=== PATIENT | female | born 1945 | race Caucasian/White ===

== ENCOUNTER 2018-02-04 10:52 | Emergency (ER) | payer MEDICARE, BC ==
[2018-02-04] MEDS ORDERED: Aspirin 81 MG Tab.Chew PO ONE (11:06)
--- NOTE | 2018-02-04 11:06 | EDM.PDOC ---
ED HPI GENERAL MEDICAL PROBLEM - General Chief Complaint: Cardiovascular Problem Stated Complaint: SOB/ DIZZY/ CHEST PAINS/ NECK PAIN Time Seen by Provider: 02/04/18 11:03 Source of Information: Reports: Patient, Family, RN Notes Reviewed History Limitations: Reports: Physical Impairment - History of Present Illness INITIAL COMMENTS - FREE TEXT/NARRATIVE: 73-year-old female presents emergency department day complaint of chest pain, she has a known history of dementia difficult to obtain history from her. I was able to talk to her daughter states that she had some shrubs cut down outside her house 3 days ago which has upset her, today when she was outside she was upset began became very short of breath describes chest pain and hyperventilating no nausea no vomiting no diaphoresis no significant heart history - Related Data Allergies Allergy/AdvReac Type Severity Reaction Status Date / Time gabapentin AdvReac Hallucinati Verified 02/04/18 11:05 ons Home Meds: Home Meds Citalopram [Citalopram HBr] 40 mg PO DAILY 02/04/18 [History] Donepezil HCl 10 mg PO DAILY 02/04/18 [History] Hydroxyurea [Hydrea] 500 mg PO BID 02/04/18 [History] Memantine HCl 10 mg PO DAILY 02/04/18 [History] Propranolol [Inderal LA 24 Hr] 80 mg PO TID 02/04/18 [History] 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: Neurological History: Reports: Alzheimers Disease, Other (See Below) Other Neuro History: chronic essential tremors Psychiatric History: Reports: Dementia Oncologic (Cancer) History: Reports: Other (See Below) Other Oncologic History: Blood cancer - Past Surgical History Head Surgeries/Procedures: Reports: None Social & Family History - Tobacco Use Smoking Status *Q: Current Every Day Smoker ED ROS GENERAL - Review of Systems Review Of Systems: Unable To Obtain ED EXAM, GENERAL - Physical Exam Exam: See Below Exam Limited By: Physical Impairment General Appearance: Alert, Mild Distress Respiratory/Chest: No Respiratory Distress, Lungs Clear, Normal Breath Sounds, No Accessory Muscle Use Cardiovascular: Regular Rate, Rhythm, No Murmur GI/Abdominal: Soft, Non-Tender Course - Vital Signs Last Recorded V/S: Last Vital Signs Temp 98.5 F 02/04/18 11:01 Pulse 62 02/04/18 11:01 Resp 14 02/04/18 11:01 BP 115/85 02/04/18 11:01 Pulse Ox 99 02/04/18 11:01 - Orders/Labs/Meds Orders: Active Orders 24 hr Category Date Time Status Cardiac Monitoring [RC] .As Directed Care 02/04/18 11:06 Active EKG Documentation Completion [RC] ASDIRECTED Care 02/04/18 11:06 Active Chest 1V Frontal [CR] Stat Exams 02/04/18 11:06 Taken EKG 12 Lead [EK] Stat Ther 02/04/18 11:06 Ordered Labs: Laboratory Tests 02/04/18 02/04/18 Range/Units 11:19 11:19 WBC 4.9 (4.5-11.0) K/uL RBC 2.68 L (3.30-5.50) M/uL Hgb 11.5 L (12.0-15.0) g/dL Hct 33.4 L (36.0-48.0) % MCV 125 H (80-98) fL MCH 43 H (27-31) pg MCHC 34 (32-36) % Plt Count 271 (150-400) K/uL Neut % (Auto) 57 (36-66) % Lymph % (Auto) 32 (24-44) % [place] % (Auto) 9 H (2-6) % Eos % (Auto) 1 L (2-4) % Baso % (Auto) 1 (0-1) % Sodium 139 L (140-148) mmol/L Potassium 4.4 (3.6-5.2) mmol/L Chloride 104 (100-108) mmol/L Carbon Dioxide 28 (21-32) mmol/L Anion Gap 11.4 (5.0-14.0) mmol/L BUN 18 D (7-18) mg/dL Creatinine 1.0 D (0.6-1.0) mg/dL Est Cr Clr Drug Dosing 43.74 mL/min Estimated GFR (MDRD) 54 L (>60) Glucose 99 (74-106) mg/dL Calcium 8.7 (8.5-10.1) mg/dL Total Bilirubin 1.6 H D (0.2-1.0) mg/dL AST 21 (15-37) U/L ALT 25 (12-78) U/L Alkaline Phosphatase 71 (46-116) U/L CK-MB (CK-2) 1.2 (0-3.6) mg/mL Troponin I < 0.017 (0.000-0.056) ng/mL Total Protein 6.8 (6.4-8.2) g/dL Albumin 3.5 (3.4-5.0) g/dL Globulin 3.3 (2.3-3.5) g/dL Albumin/Globulin Ratio 1.1 L (1.2-2.2) Meds: Medications Discontinued Medications Generic Name Dose Route Start Last Admin Trade Name Dorothy PRN Reason Stop Dose Admin Aspirin 324 mg 02/04/18 11:06 02/04/18 11:17 Aspirin PO 02/04/18 11:07 324 mg ONETIME ONE Administration Lorazepam 1 mg 02/04/18 11:07 02/04/18 11:17 Ativan PO 02/04/18 11:08 1 mg ONETIME ONE Administration Departure - Departure Time of Disposition: 12:16 Disposition: Home, Self-Care 01 Condition: Fair Clinical Impression: Panic attack Referrals: Garcia Hooks MD [Primary Care Provider] - Forms: ED Department Discharge Additional Instructions: Use Ativan as needed for symptomatic relief, Please followup with your primary care provider in 3-5 days if not better, please call return to the emergency department with worsening of symptoms. - My Orders Last 24 Hours: My Active Orders 02/04/18 11:06 Cardiac Monitoring [RC] .As Directed EKG Documentation Completion [RC] ASDIRECTED Chest 1V Frontal [CR] Stat EKG 12 Lead [EK] Stat - Assessment/Plan Last 24 Hours: My Active Orders 02/04/18 11:06 Cardiac Monitoring [RC] .As Directed EKG Documentation Completion [RC] ASDIRECTED Chest 1V Frontal [CR] Stat EKG 12 Lead [EK] Stat Plan: Assessment Acuity = acute Site and laterality = panic attack complicated patient with history of Alzheimer 's type dementia Etiology = probably related to recent change in environment with trees been cut down Manifestations = none Location of injury = Home Lab values = hemoglobin low 11.5 consistent with macro chromic anemia total bilirubin elevated at 1.6 consistent hyperbilirubinemia remainder lab work was negative, troponin was negative EKG demonstrates a sinus rhythm however there are some ST depressions that are random no consecutive leads appreciated chest x -ray I did review films myself I cannot appreciate any acute process, the official read from radiology is pending Plan I did review lab work EKG results with her daughter wouldn't try Ativan which did calm her down 1 mg by mouth 3 times a day when necessary total #10, have her follow-up with primary care in 3-5 days if no improvement This note was dictated using ITC voice recognition software please call with any questions on syntax or grammar.
[2018-02-04] MEDS ORDERED: LORazepam 1 MG Tab PO ONE (11:07)
--- NOTE | 2018-02-04 12:37 | CR ---
CHEST: Portable CLINICAL HISTORY:Chest pain COMPARISON:2014 FINDINGS: The heart size, pulmonary vascular and hilar structures are normal. No infiltrate effusion or pneumothorax is seen. There is a sclerotic focus in the proximal right humerus of uncertain chrono logy. IMPRESSION: No acute cardiopulmonary process
[2018-02-04 12:54] VITALS: BP 132/63
== END 2018-02-04 12:35 | disposition home or self-care (01) ==
LOC: JP.ED 10:52
DX: F41.0 Panic disorder [episodic paroxysmal anxiety] (principal); G30.9 Alzheimer's disease, unspecified; F02.80 Dementia in other diseases classified elsewhere, unspecified severity, without behavioral disturbance, psychotic disturbance, mood disturbance, and anxiety; Z88.8 Allergy status to other drugs, medicaments and biological substances; Z79.899 Other long term (current) drug therapy; F17.200 Nicotine dependence, unspecified, uncomplicated
CPT/HCPCS: 36415; 71045; 80053; 82553; 84484; 85025; 93005; 99284; A9270

== ENCOUNTER 2020-03-29 22:39 | Emergency (ER) | payer MEDICARE, MEDICAID ==
[2020-03-29] MEDS ORDERED: Rocuronium 50 MG/5 ML Vial ONE (22:47)
[2020-03-29] MEDS ORDERED: propofoL 100 ML ONE (23:08)
[2020-03-29] MEDS ORDERED: Etomidate 2 MG/ML 10 ML SDV IVPUSH ONE (23:09)
[2020-03-29] MEDS ORDERED: propofoL 100 ML IV SCH (23:15)
[2020-03-29] MEDS ORDERED: Sodium Chloride 0.9% 1,000 ML IV ONE (23:15)
[2020-03-29] MEDS ORDERED: cefTRIAXone 1 GM in Sodium Chloride 0.9% 50 ML IV ONE (23:18)
[2020-03-29] MEDS ORDERED: cefTRIAXone 1 GM AdvVial IV ONE (23:20)
[2020-03-29] MEDS ORDERED: Sodium Chloride 0.9% 100 ML ONE (23:20)
--- NOTE | 2020-03-29 23:37 | EDM.PDOC ---
ED HPI GENERAL MEDICAL PROBLEM - General Chief Complaint: Respiratory Problem Stated Complaint: COVID POSITIVE VIA [facility] Time Seen by Provider: 03/29/20 23:08 - History of Present Illness INITIAL COMMENTS - FREE TEXT/NARRATIVE: Yuliet is a 75-year-old female presenting from [facility] for respiratory difficulty. EMS was called after the patient exhibited what appeared to be seizure-like activity and found her to be in respiratory distress with tachycardia, hypotension, and hypoxia. Upon arrival to the ED the patient's blood pressure was 60/34 with a heart rate of 165 bpm and an SPO2 of 70% despite being on close fitting facemask and nasal cannula. The patient was found to have a temperature of 102.7 F. She could not answer questions, was not following commands, but did withdraw to pain. Per report of EMS, the patient was diagnosed 3 days ago with COVID-19. The patient has not been cooperative through the transport. She is confused and grabbing at things. She arrived with gurgling respirations and a large amount of thick secretions in the pharynx. - Related Data Allergies Allergy/AdvReac Type Severity Reaction Status Date / Time gabapentin AdvReac Hallucinati Verified 02/04/18 11:05 ons sulfa drugs Allergy Other Uncoded 02/18/19 12:35 Home Meds: Home Meds Citalopram [Citalopram HBr] 40 mg PO DAILY 02/04/18 [History] Donepezil HCl 10 mg PO DAILY 02/04/18 [History] Hydroxyurea [Hydrea] 500 mg PO BID 02/04/18 [History] Memantine HCl 10 mg PO BID 02/04/18 [History] Propranolol [Inderal LA 24 Hr] 80 mg PO TID 02/04/18 [History] Aspirin [Halfprin] 81 mg PO DAILY 02/18/19 [History] Glycopyrrolate [Robinul] 1 mg PO DAILY 02/18/19 [History] Past Medical History 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: Neurological History: Reports: Alzheimers Disease, Other (See Below) Other Neuro History: chronic essential tremors Psychiatric History: Reports: Dementia Hematologic History: Reports: Other (See Below) Other Hematologic History: platles get to high Oncologic (Cancer) History: Reports: Other (See Below) Other Oncologic History: Blood cancer - Past Surgical History Head Surgeries/Procedures: Reports: None Social & Family History - Caffeine Use Caffeine Use: Reports: Coffee ED ROS GENERAL - Review of Systems Review Of Systems: Unable To Obtain Reason Not Obtained: Unable to obtain review of systems as the patient is unresponsive ED EXAM, GENERAL - Physical Exam Exam: See Below Exam Limited By: Respiratory Distress (Severe respiratory distress with hypoxia, hypotension, and tachycardia) General Appearance: Anxious, Lethargic Eye Exam: Bilateral Eye: PERRL Throat/Mouth: Other (Thick secretions in the retropharynx and pharynx. Gurgling respirations. Very dry mucous membranes.) Head: Normocephalic Neck: Supple. No: Lymphadenopathy (R), Lymphadenopathy (L) Respiratory/Chest: Respiratory Distress, Decreased Breath Sounds, Rhonchi (Coarse rhonchi throughout the chest.), Other (Tachypnea) Cardiovascular: Tachycardia, Other (Good bilateral radial pulses) Peripheral Pulses: 2+: Radial (L), Radial (R) GI/Abdominal: Non-Tender, Abnormal Bowel Sounds (Decreased bowel sounds), Other (Scaphoid abdomen) (Female) Exam: Deferred Rectal (Female) Exam: Deferred Back Exam: Normal Inspection Extremities: Normal Inspection Neurological: Confused, Disoriented, Unresponsive Psychiatric: Anxious Skin Exam: Other (Very poor skin turgor) Lymphatic: No Adenopathy ED RESPIRATORY PROCEDURES - Endotracheal Intubation Time of Intubation: 22:48 ET Intubation Indication: Respiratory Failure, Airway Protection Preparation: Suction, Balloon Tested, BVM Set Up, Difficult Airway Equip Airway Assessment: Profuse Secretions Pre-Oxygenation: Assisted with BVM, 100% FiO2 Anesthesia Meds: Etomidate, Rocuronium Placement: Cuffed Cords Visualized: Yes ETT Size In mm: 7.5 Number of Attempts: 1 Confirmed By: CO2 Indicator, Bilateral Breath Sounds, Chest Xray Tube Secured By: By Provider Course - Vital Signs Last Recorded V/S: Last Vital Signs Temp Pulse 149 H 03/29/20 22:49 Resp 14 03/29/20 22:49 BP 113/71 03/29/20 22:49 Pulse Ox - Orders/Labs/Meds Orders: Active Orders 24 hr Category Date Time Status RASS Sedation Scale [RC] ASDIRECTED Care 03/29/20 23:11 Ordered Chest 1V Frontal [CR] Stat Exams 11/11/20 Ordered Propofol Drip @ 5 MCG/KG/MIN(100ml) Med 03/29/20 23:15 Ordered propofoL [Diprivan 100 ML] 100 ml IV TITRATE Sodium Chloride 0.9% [Normal Saline] 1,000 ml Med 03/29/20 23:15 Ordered IV .BOLUS cefTRIAXone [Rocephin] 1 gm Med 03/29/20 23:18 Ordered Sodium Chloride 0.9% [Normal Saline] 50 ml IV ONETIME Desired Level of Sedation (RASS) [AST] Click to Edit Oth 03/29/20 23:11 Ordered Medication Orders Propofol (Diprivan 100 Ml) 100 mls @ 0 mls/hr IV TITRATE LATOSHA; Protocol Sodium Chloride (Normal Saline) 1,000 mls @ 999 mls/hr IV .BOLUS ONE Stop: 03/30/20 00:15 Ceftriaxone Sodium 1 gm/ (Sodium Chloride) 50 mls @ 100 mls/hr IV ONETIME ONE Stop: 03/29/20 23:47 Labs: Laboratory Tests 03/29/20 03/29/20 03/29/20 Range/Units 22:40 22:40 22:40 WBC 19.7 H (4.5-11.0) K/uL RBC 3.29 L (3.30-5.50) M/uL Hgb 11.8 L (12.0-15.0) g/dL Hct 36.2 (36.0-48.0) % MCV 110 H (80-98) fL MCH 36 H (27-31) pg MCHC 33 (32-36) % Plt Count 626 H (150-400) K/uL Add Manual Diff Yes Neutrophils % (Manual) 71 H (36-66) % Band Neutrophils % 8 (5-11) % Lymphocytes % (Manual) 10 L (24-44) % Monocytes % (Manual) 11 H (2-6) % Anisocytosis Marked H Puncture Site ABG pH (7.350-7.450) ABG pCO2 (35.0-42.0) mmHg ABG pO2 (75.0-100.0) mmHg ABG HCO3 (22.0-26.0) mmol/L ABG Total CO2 (21.0-25.0) mmol/L ABG O2 Saturation (95.0-98.0) % ABG O2 Content (15.0-23.0) %vol ABG Base Excess mm/L ABG Hemoglobin (12.0-16.0) g/dL ABG Oxyhemoglobin % ABG Carboxyhemoglobin (0.0-1.6) % ABG Methemoglobin % Daniel Test O2 Delivery Device Oxygen Flow Rate L Sodium 150 H (140-148) mmol/L Potassium 3.9 (3.6-5.2) mmol/L Chloride 110 H (100-108) mmol/L Carbon Dioxide 24 (21-32) mmol/L Anion Gap 19.9 H (5.0-14.0) mmol/L BUN 81 H* D (7-18) mg/dL Creatinine 2.5 H D (0.6-1.0) mg/dL Est Cr Clr Drug Dosing TNP Estimated GFR (MDRD) 19 L (>60) Glucose 161 H (74-106) mg/dL Lactic Acid 3.6 H (0.4-2.0) mmol/L Calcium 10.1 D (8.5-10.1) mg/dL Total Bilirubin 0.9 (0.2-1.0) mg/dL AST 59 H D (15-37) U/L ALT 35 (12-78) U/L Alkaline Phosphatase 96 (46-116) U/L C-Reactive Protein 17.29 H (0.0-0.3) mg/dL Total Protein 8.1 (6.4-8.2) g/dL Albumin 3.1 L (3.4-5.0) g/dL Globulin 5.0 H (2.3-3.5) g/dL Albumin/Globulin Ratio 0.6 L (1.2-2.2) 03/29/20 Range/Units 22:45 WBC (4.5-11.0) K/uL RBC (3.30-5.50) M/uL Hgb (12.0-15.0) g/dL Hct (36.0-48.0) % MCV (80-98) fL MCH (27-31) pg MCHC (32-36) % Plt Count (150-400) K/uL Add Manual Diff Neutrophils % (Manual) (36-66) % Band Neutrophils % (5-11) % Lymphocytes % (Manual) (24-44) % Monocytes % (Manual) (2-6) % Anisocytosis Puncture Site L radial ABG pH 7.421 (7.350-7.450) ABG pCO2 28.4 L (35.0-42.0) mmHg ABG pO2 121.0 H (75.0-100.0) mmHg ABG HCO3 18.1 L (22.0-26.0) mmol/L ABG Total CO2 16.4 L (21.0-25.0) mmol/L ABG O2 Saturation 98.1 H (95.0-98.0) % ABG O2 Content 16.3 (15.0-23.0) %vol ABG Base Excess -4.8 mm/L ABG Hemoglobin 11.9 L (12.0-16.0) g/dL ABG Oxyhemoglobin 96.4 % ABG Carboxyhemoglobin 0.8 (0.0-1.6) % ABG Methemoglobin 0.9 % Daniel Test Combative O2 Delivery Device Non rebr mask Oxygen Flow Rate 15.0 L Sodium (140-148) mmol/L Potassium (3.6-5.2) mmol/L Chloride (100-108) mmol/L Carbon Dioxide (21-32) mmol/L Anion Gap (5.0-14.0) mmol/L BUN (7-18) mg/dL Creatinine (0.6-1.0) mg/dL Est Cr Clr Drug Dosing Estimated GFR (MDRD) (>60) Glucose (74-106) mg/dL Lactic Acid (0.4-2.0) mmol/L Calcium (8.5-10.1) mg/dL Total Bilirubin (0.2-1.0) mg/dL AST (15-37) U/L ALT (12-78) U/L Alkaline Phosphatase (46-116) U/L C-Reactive Protein (0.0-0.3) mg/dL Total Protein (6.4-8.2) g/dL Albumin (3.4-5.0) g/dL Globulin (2.3-3.5) g/dL Albumin/Globulin Ratio (1.2-2.2) Meds: Medications Generic Name Dose Route Start Last Admin Trade Name Freq PRN Reason Stop Dose Admin Propofol 100 mls @ 0 mls/hr 03/29/20 23:15 Diprivan 100 Ml IV TITRATE LATOSHA Protocol 5 MCG/KG/MIN Sodium Chloride 1,000 mls @ 999 mls/hr 03/29/20 23:15 Normal Saline IV 03/30/20 00:15 .BOLUS ONE Ceftriaxone Sodium 1 gm/ 50 mls @ 100 mls/hr 03/29/20 23:18 Sodium Chloride IV 03/29/20 23:47 ONETIME ONE Discontinued Medications Generic Name Dose Route Start Last Admin Trade Name Dorothy PRN Reason Stop Dose Admin Ceftriaxone Sodium Confirm 03/29/20 23:20 Rocephin Administered 03/29/20 23:21 Dose 1 gm IV .STK-MED ONE Etomidate 15 mg 03/29/20 23:09 Amidate IVPUSH 03/29/20 23:10 ONETIME ONE Propofol Confirm 03/29/20 23:08 Diprivan 100 Ml Administered 03/29/20 23:09 Dose 100 mls @ as directed .ROUTE .STK-MED ONE Sodium Chloride Confirm 03/29/20 23:20 Normal Saline Administered 03/29/20 23:21 Dose 100 mls @ as directed .ROUTE .STK-MED ONE Rocuronium [place] Confirm 03/29/20 22:47 Zemuron Administered 03/29/20 22:48 Dose 50 mg .ROUTE .STK-MED ONE - Radiology Interpretation Free Text/Narrative:: Portable 1 view chest x-ray shows normal cardiac silhouette, no acute infiltrates, hyperinflated lungs with some flattening of the diaphragms. - Re-Assessments/Exams Free Text/Narrative Re-Assessment/Exam: 03/29/20 23: 2325 I discussed the case with Dr. Stoddard, child care education coordinator at [facility] who accepts the patient in transfer to the ICU there. We did initiate Rocephin 1 g IV. They are flight checking to see if weather permits for air care transfer. Free Text/Narrative Re-Assessment/Exam: 03/29/20 23:41 critical care time of 35 minutes for review of patient's chart, management of medical condition, and coordinating transfer of the patient; excluding procedures. Departure - Departure Time of Disposition: 23:40 Disposition: DC/Tfer to [facility] 02 Condition: Critical Clinical Impression: Aspiration into airway, COVID-19 - Discharge Information *PRESCRIPTION DRUG MONITORING PROGRAM REVIEWED*: Not Applicable *COPY OF PRESCRIPTION DRUG MONITORING REPORT IN PATIENT SOFIE: Not Applicable Referrals: PCP,None [Primary Care Provider] - Forms: ED Department Discharge Sepsis Event Note (ED) - Focused Exam Vital Signs: Vital Signs Pulse Resp BP 03/29/20 22:49 149 H 14 113/71 03/29/20 22:48 152 H 122/64 - Problem List & Annotations (1) Aspiration into airway SNOMED Code(s): 484372199 Code(s): T17.908A - UNSP FB IN RESP TRACT, PART UNSP CAUSING OTH INJURY, INIT Status: Acute Priority: High Current Visit: Yes (2) COVID-19 SNOMED Code(s): 011952899 Code(s): U07.1 - COVID-19 Status: Acute Priority: High Current Visit: Yes - Problem List Review Problem List Initiated/Reviewed/Updated: Yes - My Orders Last 24 Hours: My Active Orders 03/29/20 Chest 1V Frontal [CR] Stat 03/29/20 23:11 RASS Sedation Scale [RC] ASDIRECTED Desired Level of Sedation (RASS) [AST] Click to Edit 03/29/20 23:15 Propofol Drip @ 5 MCG/KG/MIN(100ml) propofoL [Diprivan 100 ML] 100 ml IV TITRATE Sodium Chloride 0.9% [Normal Saline] 1,000 ml IV .BOLUS 03/29/20 23:18 cefTRIAXone [Rocephin] 1 gm Sodium Chloride 0.9% [Normal Saline] 50 ml IV ONETIME - Assessment/Plan Last 24 Hours: My Active Orders 03/29/20 Chest 1V Frontal [CR] Stat 03/29/20 23:11 RASS Sedation Scale [RC] ASDIRECTED Desired Level of Sedation (RASS) [AST] Click to Edit 03/29/20 23:15 Propofol Drip @ 5 MCG/KG/MIN(100ml) propofoL [Diprivan 100 ML] 100 ml IV TITRATE Sodium Chloride 0.9% [Normal Saline] 1,000 ml IV .BOLUS 03/29/20 23:18 cefTRIAXone [Rocephin] 1 gm Sodium Chloride 0.9% [Normal Saline] 50 ml IV ONETIME
[2020-03-30] MEDS ORDERED: Rocuronium 50 MG/5 ML Vial IV ONE (00:05)
[2020-03-30] MEDS ORDERED: Sodium Chloride 0.9% 250 ML IV SCH (00:15)
[2020-03-30] MEDS ORDERED: Acetaminophen Soln 160 MG/5 ML UD Cup PO ONE (00:42)
[2020-03-30 01:04] VITALS: BP 141/79; PULSE 148
--- NOTE | 2020-03-30 09:14 | CR ---
CHEST: Portable 03/29/2020 at 11:12 PM CLINICAL HISTORY:Intubation COMPARISON:2018 FINDINGS: Endotracheal tube is been placed. Tip is 1.8 cm from the chrissy. Lungs are hyperaerated. Heart and pulmonary vascular normal. There are a few scattered nodular densities most which appear to be granulomata. There is a 1 cm nodular focus in the left lower lung field. This may be a pulmonary nodule or nipple shadow. Defibrillator pads over the mid chest obscures some detail. Impression: Endotracheal intubation ET tube is in the distal trachea Emphysematous changes Pulmonary nodules are described above.. If clinically relevant noncontrast CT chest should BE considered when patient's condition allows
== END 2020-03-30 00:51 ==
LOC: JP.ED 22:39
DX: U07.1 COVID-19 (principal); T17.900A Unspecified foreign body in respiratory tract, part unspecified causing asphyxiation, initial encounter; G30.9 Alzheimer's disease, unspecified; F02.80 Dementia in other diseases classified elsewhere, unspecified severity, without behavioral disturbance, psychotic disturbance, mood disturbance, and anxiety; R00.0 Tachycardia, unspecified; Z88.8 Allergy status to other drugs, medicaments and biological substances; Z88.2 Allergy status to sulfonamides; Z79.899 Other long term (current) drug therapy; Z79.82 Long term (current) use of aspirin
CPT/HCPCS: 31500; 36415; 36600; 71045; 71045-26; 80053; 82803; 83605; 85025; 86140; 96365; 96366; 96368; 99285-25; A9270-GY; J0696; J2704; J3490; J7030; J7050